=== PATIENT | female | born 1955 | race Caucasian/White ===

== ENCOUNTER 2023-10-22 12:29 | Emergency (ER) | payer MEDICARE, MEDICAID, SELFPAY ==
[2023-10-22] VITALS (8 sets, daily range): BP systolic 107–130; BP diastolic 48–77; PULSE 70–87; RESP 16; TEMP 36.4–36.6; O2SAT 91–96; BMI 21.2
--- NOTE | 2023-10-22 13:17 | CT_ITS ---
FINAL REPORT TECHNIQUE: Pre-and postcontrast images of the abdomen through the pelvis were performed by computed tomography. Extensive 3-D reconstruction images were performed. A CTA was performed. This study was performed with techniques to keep radiation doses as low as reasonably achievable (ALARA). Individualized dose reduction techniques using automated exposure control or adjustment of mA and/or kV according to the patient's size were employed. CLINICAL HISTORY: [facility] reports she had moderate blood clots in her brief this am, they believe was vaginal bleeding. COMPARISON: None FINDINGS: ABDOMEN: There is a 12 mm noncalcified nodule in the right lower lobe. Multifocal other small nodular opacities are nonspecific but may represent inflammatory process such as mycobacterial/fungal disease is. There is a calcified granuloma in the left lung base. Precontrast images demonstrate no evidence of nephrolithiasis. No adrenal masses are identified. The liver, spleen and pancreas are unremarkable. The patient is post cholecystectomy. PELVIS: The appendix is normal. There is mild descending and sigmoid colon wall thickening, colitis not excluded. Multiple foci of gas are noted in the bladder of uncertain significance which may be iatrogenic but gas-forming organism is not excluded. There is moderate diffuse bladder wall thickening which is likely inflammatory. A right-sided bladder diverticulum is noted. The patient is post hysterectomy. The bony pelvis is unremarkable. CTA: There is no evidence of aneurysm or dissection. There are diffuse vascular calcifications. There is mild narrowing of the distal abdominal aorta. The celiac axis and SMA are patent. The RADHA is patent. There is mild proximal right renal artery stenosis. Focal severe 70% left renal artery stenosis is noted. There is mild stenosis of the bilateral common iliac arteries. The external iliac arteries are patent without evidence of stenosis. The internal iliac arteries are patent without stenosis. IMPRESSION: Abnormal urinary bladder may represent cystitis. Wall thickening of the descending and sigmoid colon may represent colitis. 12 mm right lower lobe nodule, nonspecific. Recommend correlation with PET-CT. Reviewed, Interpreted and Dictated by Silvio Thornton III, MD Transcribed by Rubia Watt Authenticated and [facility]
[2023-10-22 13:50] LABS: Albumin Level 4.1 g/dl (3.5-5.0)
[2023-10-22 13:51] LABS: Chloride 104 mmol/L (98-107); Potassium 3.6 mmoL/L (3.5-5.1); Sodium 139 mmol/L (136-145)
[2023-10-22 13:53] LABS: Alanine Aminotransferase 18 U/L (12-78); Aspartate Amino Transferase 21 U/L (14-36); Blood Urea Nitrogen 17 mg/dl (7-17); Creatinine Clearance Estimated 48 mL/min (50-200); Estimated Glomerular Filt Rate 83 ml/min (>60); GFR (African American) 101 ML/MIN (>60)
[2023-10-22 13:54] LABS: Albumin/Globulin Ratio 1.1 (1.1-1.8); Alkaline Phosphatase 91 U/L (38-126); Anion Gap 5.6 mEq/L (5-15); Bilirubin,Total 0.5 mg/dl (0.2-1.3); Calcium 9.5 mg/dl (8.4-10.2); Carbon Dioxide 33 mmol/L (22.0-30.0); Globulin 3.8 g/dL (1.3-3.2); Glucose 94 mg/dl (74-100); Lactic Acid 1.9 mmol/L (0.7-2.1); Lipase 56 U/L (23-300); Magnesium 1.6 mg/dl (1.6-2.3); Total Protein,Serum 7.9 g/dl (6.3-8.2)
[2023-10-22 13:57] LABS: Activated Partial Thrombo Time 29.3 seconds (22.8-30.6); INR 1.09 (0.9-1.1); Prothrombin Time 12.1 seconds (10.1-12.5)
--- NOTE | 2023-10-22 14:01 | ED_ITS ---
Discharge Plan Disposition Patient Disposition: Home, Self-Care Condition: Good Prescriptions Prescriptions: New cefdinir 300 mg capsule 300 mg PO BID 7 Days Qty: 14 0RF Referrals Follow up/Referrals: Jonathon Sanchez MD [Staff Physician] - See instructions (vaginal bleeding, refused ER pelvic exam) Provider,MD Nemesio [Primary Care Provider] - See instructions Activity Restrictions/Add. Instructions Additional Instructions/Restrictions: You were evaluated in the ER and are appropriate for discharge at this time. Because you refused a vaginal exam, you have been referred to [facility] to be evaluated for bleeding. Take the prescribed antibiotics as directed, do not skip doses, do not stop taking them early. Make an appoint with primary care physician for reevaluation in a few days and asked them to schedule you for a recheck of the lung nodule, return to the ER with new, worsening, or otherwise concerning symptoms Clinical Impressions Clinical Impression: Urinary tract infection, Lung nodule Print Language Print Language: Bots[place] Discharge ED Provider: Bharath Herrmann General Adult HPI <Bharath Herrmann MD - Last Filed: 10/22/23 15:46> General Chief complaint: Vaginal Bleeding Stated complaint: vaginal bleeding Time Seen by Provider: 10/22/23 13:01 Mode of Arrival: EMS Source of Information: Patient Limitations: No Limitations Description of Symptoms (Recalled from ER Triage Doc. by RN): pt reports she has no complaints and does not want to be here. pt is alert. EMS reports she had moderate blood clots in her brief this am, they believe was vaginal bleeding. When specifically asked about it the pt confirms the vaginal bleeding. pt is very difficult to get information from. pt is A&O X3, disoriented to time. pt states the bleeding comes and goes and I guess weeks when refering to how long this has been ongoing. pt states she has had a full hysterectomy. pt denies trauma. pt denies any pain. History of Present Illness HPI narrative: Please note that above description of symptoms, in this electronic medical record under categorization of recalled from ER triage doctor by RN are reflective of an initial nursing assessment, however, is not reflective of my full history and physical exam that was personally taken and clarified. Consequentially, this preceding description of symptoms, which may include the patient's categorized chief complaint in the EMR, do not reflect my personal clinical impression, and the ultimate description of history of present illness and patient stated complaints should be deferred to this section of the note. Unless stated otherwise or congruent with this section of the note, additional signs, symptoms, or incongruence should be interpreted as inaccurate with my clinical impression. Related Data Previous Rx's ?Medication ?Instructions ?Recorded cefdinir 300 mg capsule 300 mg PO BID 7 days #14 caps 10/22/23 Allergies Allergy/AdvReac Type Severity Reaction Status Date / Time codeine Allergy Verified 10/22/23 14:32 ketorolac Allergy Verified 10/22/23 14:32 minocycline Allergy Verified 10/22/23 14:32 PFSH <Bharath Herrmann MD - Last Filed: 10/22/23 15:46> [facility] Disclaimer: The information contained in this section may have been updated after the patient was seen, as this information can be updated by other users. Social History (Updated 10/22/23 @ 15:46 by Bharath Herrmann MD) Smoking Status: Current every day smoker alcohol intake: never current occupational status: unemployed Travel in the last 8 weeks: None <Bharath Herrmann MD - Last Filed: 10/22/23 15:46> ROS Obtained: Yes All systems reviewed & no additional complaints except as documented Physical Exam <Bharath Herrmann MD - Last Filed: 10/22/23 15:46> General General appearance: alert Head Head exam: atraumatic and normocephalic Eye Eye exam: Present normal appearance, PERRL and EOMI Neck Neck exam: Present normal inspection, full ROM and trachea midline Respiratory Respiratory exam: Absent respiratory distress, wheezes, stridor, accessory muscle use or prolonged expiratory phase Cardiovascular Cardiovascular exam: Present regular rate, normal rhythm and other (Pulses equal symmetric in upper and lower extremities) Abdominal Exam Abdominal exam: Present soft; Absent distention, tenderness or pulsatile mass Extremities Exam Extremities exam: Absent edema Neurological Exam Neurological exam: Present alert and CN II-XII intact; Absent oriented X3 (Oriented only to person) or motor sensory deficit Skin Skin exam: Present warm and dry; Absent diaphoresis or erythema Medical Decision Making <Bharath Herrmann MD - Last Filed: 10/22/23 15:46> Medical Records Medical records reviewed: Yes I reviewed the patient's medical records. Alfred Inquiry Pt receiving controlled substance: No Alfred was queried for this patient: No Vital Signs: 10/22/23 12:48 10/22/23 13:00 10/22/23 14:07 Temperature 97.6 F Temperature Source Oral Pulse Rate 74 73 Pulse Rate [Left] 87 Respiratory Rate 16 Blood Pressure 111/68 117/54 L Blood Pressure [Right Arm] 107/68 L Blood Pressure Mean [Right Arm] 81 Blood Pressure Source [Right Arm] Automatic Cuff Blood Pressure Position [Right Arm] Sitting 02 Sat by Pulse Oximetry 96 96 93 L Oxygen Delivery Method Room Air 10/22/23 17:21 10/22/23 17:30 10/22/23 18:00 Temperature Temperature Source Pulse Rate 72 86 80 Pulse Rate [Left] Respiratory Rate Blood Pressure 121/48 L 128/74 125/63 Blood Pressure [Right Arm] Blood Pressure Mean [Right Arm] Blood Pressure Source [Right Arm] Blood Pressure Position [Right Arm] 02 Sat by Pulse Oximetry 91 L 91 L 92 L Oxygen Delivery Method 10/22/23 18:30 Temperature Temperature Source Pulse Rate 70 Pulse Rate [Left] Respiratory Rate Blood Pressure 130/55 L Blood Pressure [Right Arm] Blood Pressure Mean [Right Arm] Blood Pressure Source [Right Arm] Blood Pressure Position [Right Arm] 02 Sat by Pulse Oximetry 92 L Oxygen Delivery Method Lab Data Lab Results 10/22/23 13:30: WBC 15.1 H, RBC 5.13, Hgb 14.3, Hct 46.6, MCV 90.8, MCH 27.9, M CHC 30.7 L, RDW 16.3, Plt Count 388, MPV 7.5, Neut % (Auto) 81.3 H, Lymph % (Auto) 13.5, [place] % (Auto) 3.2, Eos % (Auto) 1.3, Baso % (Auto) 0.6, Neut # (Auto) 12.3 H, Lymph # (Auto) 2.1, [place] # (Auto) 0.5, Eos # (Auto) 0.2, Baso # (Auto) 0.1, Total Counted 100, Neutrophils % (Manual) 86 H, Lymphocytes % (Manual) 12, Monocytes % (Manual) 2, Platelet Estimate Normal, RBC Morphology Normal, PT 12.1, INR 1.09, APTT 29.3, Sodium 139, Potassium 3.6, Chloride 104, C arbon Dioxide 33 H, Anion Gap 5.6, BUN 17, Creatinine 0.70, Estimated Creat Clear 48, Estimated GFR 83, Est GFR ( Amer) 101, Glucose 94, Lactate 1.9, Calcium 9.5, Magnesium 1.6, Total Bilirubin 0.5, AST 21, ALT 18, Alkaline Phosphatase 91, Total Protein 7.9, Albumin 4.1, Globulin 3.8 H, Albumin/Globulin Ratio 1.1, Lipase 56, Blood Type B Negative, Antibody Screen Negative 10/22/23 16:00: Urine Color Yellow, Urine Appearance Cloudy, Urine pH 5.5, Ur Specific [place] 1.010, Urine Protein 1+, Urine Glucose (UA) 3+, Urine Ketones Negative, Urine Blood 3+, Urine Nitrate Positive, Urine Bilirubin Negative, Urine Urobilinogen 0.2, Ur Leukocyte Esterase 2+ A, Urine RBC 50-100, Urine WBC 50-100, Ur Squamous Epith Cells 3-5, Urine Bacteria 1+ 10/22/23 13:30 10/22/23 13:30 Orders (Tests/Meds): ED MEDICATIONS Generic Name Dose Route Start Last Admin Trade Name Freq PRN Reason Stop Dose Admin Sodium Chloride 10 ml 10/22/23 14:58 10/22/23 14:59 Sodium Chloride 0.9% 10ml Syr (Rad Only) IV 11/21/23 14:57 10 ml NEEDED PRN Administration Maintain IV Site Discontinued Medications Generic Name Dose Route Start Last Admin Trade Name Freq PRN Reason Stop Dose Admin Haloperidol Lactate 2.5 mg 10/22/23 14:24 10/22/23 14:28 Haloperidol Lactate 5 Mg/Ml Vial IV 10/22/23 14:25 2.5 mg ONCE ONE Administration Haloperidol Lactate 2.5 mg 10/22/23 14:24 10/22/23 14:26 Haloperidol Lactate 5 Mg/Ml Vial IV 10/22/23 14:25 Not Given ONCE ONE Haloperidol Lactate 2.5 mg 10/22/23 14:44 10/22/23 14:48 Haloperidol Lactate 5 Mg/Ml Vial IV 10/22/23 14:45 2.5 mg ONCE ONE Administration Ceftriaxone Sodium 1 gm/ 50 mls @ 100 mls/hr 10/22/23 16:56 10/22/23 17:02 Sodium Chloride IV 10/22/23 17:25 100 mls/hr ONCE ONE Administration Iopamidol 100 ml 10/22/23 14:58 10/22/23 14:59 Iopamidol-370 (76%);100ml Bottle IV 10/22/23 14:59 100 ml ONCE ONE Administration Sodium Chloride 50 ml 10/22/23 14:58 10/22/23 14:59 0.9 % Sodium Chloride 50 Ml Vial IV 10/22/23 14:59 50 ml ONCE ONE Administration ORDERS Category Date Time Status Type and Screen Stat BBK 10/22/23 13:[address] angio abdomen pelvis Stat Cat Scan 10/22/23 13:17 Completed Complete Blood Count Auto Diff Stat Lab 10/22/23 13:30 Completed Comprehensive Metabolic Panel Stat Lab 10/22/23 13:30 Completed Lactic Acid Stat Lab 10/22/23 13:30 Completed Lipase Stat Lab 10/22/23 13:30 Completed Magnesium Stat Lab 10/22/23 13:30 Completed PT INR [Prothrombin Time INR] Stat Lab 10/22/23 13:30 Completed PTT [Activated Partial Thrombo Time] Stat Lab 10/22/23 13:30 Completed Urinalysis and Microscopic Stat Lab 10/22/23 16:00 Completed Urine Culture Stat Micro 10/22/23 16:00 Received Medical Decision Narrative: This is a 67-year-old female unknown medical history other than chart review hypothyroidism, COPD still smoking 1/2 pack/day presenting with blood clots in her diapers. Reportedly, patient has been having blood clots in her diaper. Also has reportedly had hysterectomy, unknown if this is true, patient unable to provide adequate history. Patient denies any pain, vaginal bleeding, dysuria, hematuria, obvious blood in her stool, or any other concerns. Not on anticoagulation. History largely obtained with EMS. Patient lives at skilled nursing, no documentation available. On arrival, patient hemodynamically stable, disgruntled, unhappy, but stating that she does not want to be here in the hospital. Abdomen soft, nontender, nondistended, cardiopulmonary exam within normal obese, patient saturating appropriately, nontachypneic. No flank tenderness. Differential includes vaginal bleed, vaginal laceration, diverticulosis, malignancy, among others. Independent interpretation workup with mild leukocytosis 15.1, normal hemoglobin. Kidney function normal, LFTs normal, nonactionable electrolytes. Patient's lipase negative. CTA of the abdomen pelvis was independently interpreted, no obvious intra-abdominal bleed, but final read pending at time of handoff. Urinalysis also pending at time of handoff. [employer] Executive Director disclaimer Much of this encounter note is an electronic rubber heel and sole press tender spoken language to printed text. Electronic rubber heel and sole press tender of the spoken language may permit errors. Although I have reviewed the note, some errors may still exist. <Connor Johnson MD - Last Filed: 10/22/23 19:36> Vital Signs: 10/22/23 12:48 10/22/23 13:00 10/22/23 14:07 Temperature 97.6 F Temperature Source Oral Pulse Rate 74 73 Pulse Rate [Left] 87 Respiratory Rate 16 Blood Pressure 111/68 117/54 L Blood Pressure [Right Arm] 107/68 L Blood Pressure Mean [Right Arm] 81 Blood Pressure Source [Right Arm] Automatic Cuff Blood Pressure Position [Right Arm] Sitting 02 Sat by Pulse Oximetry 96 96 93 L Oxygen Delivery Method Room Air 10/22/23 17:21 10/22/23 17:30 10/22/23 18:00 Temperature Temperature Source Pulse Rate 72 86 80 Pulse Rate [Left] Respiratory Rate Blood Pressure 121/48 L 128/74 125/63 Blood Pressure [Right Arm] Blood Pressure Mean [Right Arm] Blood Pressure Source [Right Arm] Blood Pressure Position [Right Arm] 02 Sat by Pulse Oximetry 91 L 91 L 92 L Oxygen Delivery Method 10/22/23 18:30 Temperature Temperature Source Pulse Rate 70 Pulse Rate [Left] Respiratory Rate Blood Pressure 130/55 L Blood Pressure [Right Arm] Blood Pressure Mean [Right Arm] Blood Pressure Source [Right Arm] Blood Pressure Position [Right Arm] 02 Sat by Pulse Oximetry 92 L Oxygen Delivery Method Lab Data Lab Results 10/22/23 13:30: WBC 15.1 H, RBC 5.13, Hgb 14.3, Hct 46.6, MCV 90.8, MCH 27.9, M CHC 30.7 L, RDW 16.3, Plt Count 388, MPV 7.5, Neut % (Auto) 81.3 H, Lymph % (Auto) 13.5, [place] % (Auto) 3.2, Eos % (Auto) 1.3, Baso % (Auto) 0.6, Neut # (Auto) 12.3 H, Lymph # (Auto) 2.1, [place] # (Auto) 0.5, Eos # (Auto) 0.2, Baso # (Auto) 0.1, Total Counted 100, Neutrophils % (Manual) 86 H, Lymphocytes % (Manual) 12, Monocytes % (Manual) 2, Platelet Estimate Normal, RBC Morphology Normal, PT 12.1, INR 1.09, APTT 29.3, Sodium 139, Potassium 3.6, Chloride 104, C arbon Dioxide 33 H, Anion Gap 5.6, BUN 17, Creatinine 0.70, Estimated Creat Clear 48, Estimated GFR 83, Est GFR ( Amer) 101, Glucose 94, Lactate 1.9, Calcium 9.5, Magnesium 1.6, Total Bilirubin 0.5, AST 21, ALT 18, Alkaline Phosphatase 91, Total Protein 7.9, Albumin 4.1, Globulin 3.8 H, Albumin/Globulin Ratio 1.1, Lipase 56, Blood Type B Negative, Antibody Screen Negative 10/22/23 16:00: Urine Color Yellow, Urine Appearance Cloudy, Urine pH 5.5, Ur Specific [place] 1.010, Urine Protein 1+, Urine Glucose (UA) 3+, Urine Ketones Negative, Urine Blood 3+, Urine Nitrate Positive, Urine Bilirubin Negative, Urine Urobilinogen 0.2, Ur Leukocyte Esterase 2+ A, Urine RBC 50-100, Urine WBC 50-100, Ur Squamous Epith Cells 3-5, Urine Bacteria 1+ Orders (Tests/Meds): ED MEDICATIONS Generic Name Dose Route Start Last Admin Trade Name Jackq PRN Reason Stop Dose Admin Sodium Chloride 10 ml 10/22/23 14:58 10/22/23 14:59 Sodium Chloride 0.9% 10ml Syr (Rad Only) IV 11/21/23 14:57 10 ml NEEDED PRN Administration Maintain IV Site Discontinued Medications Generic Name Dose Route Start Last Admin Trade Name Freq PRN Reason Stop Dose Admin Haloperidol Lactate 2.5 mg 10/22/23 14:24 10/22/23 14:28 Haloperidol Lactate 5 Mg/Ml Vial IV 10/22/23 14:25 2.5 mg ONCE ONE Administration Haloperidol Lactate 2.5 mg 10/22/23 14:24 10/22/23 14:26 Haloperidol Lactate 5 Mg/Ml Vial IV 10/22/23 14:25 Not Given ONCE ONE Haloperidol Lactate 2.5 mg 10/22/23 14:44 10/22/23 14:48 Haloperidol Lactate 5 Mg/Ml Vial IV 10/22/23 14:45 2.5 mg ONCE ONE Administration Ceftriaxone Sodium 1 gm/ 50 mls @ 100 mls/hr 10/22/23 16:56 10/22/23 17:02 Sodium Chloride IV 10/22/23 17:25 100 mls/hr ONCE ONE Administration Iopamidol 100 ml 10/22/23 14:58 10/22/23 14:59 Iopamidol-370 (76%);100ml Bottle IV 10/22/23 14:59 100 ml ONCE ONE Administration Sodium Chloride 50 ml 10/22/23 14:58 10/22/23 14:59 0.9 % Sodium Chloride 50 Ml Vial IV 10/22/23 14:59 50 ml ONCE ONE Administration ORDERS Category Date Time Status Type and Screen Stat BBK 10/22/23 13:[address] angio abdomen pelvis Stat Cat Scan 10/22/23 13:17 Completed Complete Blood Count Auto Diff Stat Lab 10/22/23 13:30 Completed Comprehensive Metabolic Panel Stat Lab 10/22/23 13:30 Completed Lactic Acid Stat Lab 10/22/23 13:30 Completed Lipase Stat Lab 10/22/23 13:30 Completed Magnesium Stat Lab 10/22/23 13:30 Completed PT INR [Prothrombin Time INR] Stat Lab 10/22/23 13:30 Completed PTT [Activated Partial Thrombo Time] Stat Lab 10/22/23 13:30 Completed Urinalysis and Microscopic Stat Lab 10/22/23 16:00 Completed Urine Culture Stat Micro 10/22/23 16:00 Received Medical Decision Narrative: This is a 67-year-old female unknown medical history other than chart review hypothyroidism, COPD still smoking 1/2 pack/day presenting with blood clots in her diapers. Reportedly, patient has been having blood clots in her diaper. Also has reportedly had hysterectomy, unknown if this is true, patient unable to provide adequate history. Patient denies any pain, vaginal bleeding, dysuria, hematuria, obvious blood in her stool, or any other concerns. Not on anticoagulation. History largely obtained with EMS. Patient lives at skilled nursing, no documentation available. On arrival, patient hemodynamically stable, disgruntled, unhappy, but stating that she does not want to be here in the hospital. Abdomen soft, nontender, nondistended, cardiopulmonary exam within normal obese, patient saturating appropriately, nontachypneic. No flank tenderness. Differential includes vaginal bleed, vaginal laceration, diverticulosis, malignancy, among others. Independent interpretation workup with mild leukocytosis 15.1, normal hemoglobin. Kidney function normal, LFTs normal, nonactionable electrolytes. Patient's lipase negative. CTA of the abdomen pelvis was independently interpreted, no obvious intra-abdominal bleed, but final read pending at time of handoff. Urinalysis also pending at time of handoff. [employer] Executive Director disclaimer Much of this encounter note is an electronic rubber heel and sole press tender spoken language to printed text. Electronic rubber heel and sole press tender of the spoken language may permit errors. Although I have reviewed the note, some errors may still exist. Johnson: Upon my assumption of care patient is stable and resting comfortably. Patient's CT abdomen pelvis was personally interpreted and I do not appreciate acute intra-abdominal pathology besides findings of cystitis. Radiology read is in agreement. Patient also has an incidental finding of lung nodule which she was informed of and instructed to follow-up. Patient's urinalysis is concerning for urinary tract infection. She received Rocephin. I explained to the patient that I needed to perform a pelvic exam to evaluate vaginal bleeding. She initially consented but then refused. She stated she did not want it. She was able to explain to me she did not want to go through the discomfort and understood I could be missing something dangerous by not performing this exam. Patient is appropriate for discharge. I prescribed cefdinir for outpatient management of urinary tract infection. I referred her to OB for further evaluation of reported vaginal bleeding. Patient was given instructions on symptomatic management, follow up instructions, and return precautions for the emergency department. Patient indicated understanding and was discharged in stable condition. Critical Care <Bharath Herrmann MD - Last Filed: 10/22/23 15:46> Critical Care Time Critical Care Time: No
[2023-10-22 14:05] LABS: Basophils # 0.1 K/mm3 (0-0.2); Basophils % 0.6 % (0.1-2.0); Eosinophils # 0.2 K/mm3 (0.0-0.4); Eosinophils % 1.3 % (0.1-12.0); Hematocrit 46.6 % (37.0-47.0); Hemoglobin 14.3 g/dL (12.2-16.2); Lymphocytes # 2.1 K/mm3 (0.7-4.5); Lymphocytes % 13.5 % (10-50); Mean Corpuscular HGB Conc 30.7 g/dL (31.8-35.4); Mean Corpuscular Hemoglobin 27.9 pg (27.0-31.2); Mean Corpuscular Volume 90.8 fl (81-99); Mean Platelet Volume 7.5 fl (7.4-10.4); Monocytes # 0.5 K/mm3 (0.1-1.0); Monocytes % 3.2 % (1.7-9.3); Neutrophils # 12.3 K/mm3 (1.8-7.8); Neutrophils % 81.3 % (37.0-80.0); Platelet Count 388 K/mm3 (142-424); Red Blood Count 5.13 M/mm3 (4.20-5.40); Red Cell Distribution Width 16.3 % (11.5-17.5); White Blood Count 15.1 K/mm3 (4.8-10.8)
[2023-10-22 14:07] LABS: MANUAL DIFFERENTIAL MANUAL DIFFERENTIAL (MANUAL DIFF)
[2023-10-22] MEDS: HALOPERIDOL LACTATE 5 MG/ML VIAL 2.5 MG IV ×2 (14:28→14:48)
--- NOTE | 2023-10-22 14:48 | PC.NURSE ---
pt transported to radiology
[2023-10-22] MEDS: IOPAMIDOL-370 (76%);100ML BOTTLE 100 ML IV (14:59)
[2023-10-22] MEDS: 0.9 % SODIUM CHLORIDE 50 ML VIAL IV (14:59)
[2023-10-22] MEDS: SODIUM CHLORIDE 0.9% 10ML SYR (RAD ONLY) 10 ML IV (14:59)
[2023-10-22 15:28] LABS: Lymphocytes % 12 % (10-50); Monocytes % 2 % (2-9); Neutrophils % 86 % (42-76); Platelet Estimate Normal; RBC Morphology Normal; Total Cells Counted 100
[2023-10-22 16:09] LABS: Microscopic, Urine URINE MICROSCOPIC (MICROSCOPIC)
[2023-10-22 16:22] LABS: Appearance,Urine CLOUDY (Clear); Bilirubin,Urine Negative (Negative); Blood, Urine 3+ (Negative); Color,Urine YELLOW (Yellow); Glucose,Urine (UA) 3+ (Negative); Ketones,Urine Negative (Negative); Leukocyte Esterase,Urine 2+ (Negative); Nitrate,Urine POSITIVE (Negative); PH,Urine 5.5 (5.0-8.5); Protein,Urine 1+ (Negative); Urobilinogen,Urine 0.2 EU/dl (0.2)
[2023-10-22 16:30] LABS: Bacteria,Urine 1+ /lpf; RBC,Urine 50-100 #/hpf (0-3); WBC,Urine 50-100 #/hpf (0-3)
[2023-10-22] MEDS: CEFTRIAXONE SODIUM 1 GM in 0.9 % SODIUM CHLORIDE 50 ML IV (17:02)
--- NOTE | 2023-10-22 19:32 | PC.NURSE ---
Christopher Cruz notified that patient is ready for discharge
--- NOTE | 2023-10-23 10:48 | PC.NURSE ---
discussed urine culture with , pt dc with cefdinir, ntd
--- NOTE | 2023-10-24 09:29 | PC.NURSE ---
discussed final urine culture results with , pt dc with cefdinir, ntd
== END 2023-10-22 19:44 | disposition home or self-care (01) ==
PROVIDERS: Emergency Provider Emergency Medicine
DX: N39.0 Urinary tract infection, site not specified (principal); B96.89 Other specified bacterial agents as the cause of diseases classified elsewhere; R91.1 Solitary pulmonary nodule; R45.2 Unhappiness; F17.210 Nicotine dependence, cigarettes, uncomplicated
CPT/HCPCS: 74174; 80053; 81001; 83605; 83690; 83735; 85007; 85025; 85027; 85610; 85730; 86850; 87086; 87088; 87186; 96365; 96375; 99285; J0696; J1630; Q9967

== ENCOUNTER 2024-01-18 09:36 | Emergency (ER) | payer MEDICARE, MEDICAID, SELFPAY ==
[2024-01-18] VITALS (8 sets, daily range): BP systolic 109–128; BP diastolic 53–83; PULSE 68–91; RESP 18–24; TEMP 36.5; O2SAT 90–100; BMI 18.8
--- NOTE | 2024-01-18 09:25 | PC.NURSE ---
DR LANGLEY AT BEDSIDE
--- NOTE | 2024-01-18 09:42 | HMH.EDGENADL ---
Discharge Plan Disposition Patient Disposition: Home, Self-Care Prescriptions Prescriptions: No Action cefdinir 300 mg capsule 300 mg PO BID 7 Days Qty: 14 0RF Activity Restrictions/Add. Instructions Additional Instructions/Restrictions: Call your family doctor to establish care for this visit to the emergency department and schedule follow-up within 48 hours to ensure improvement. If you have any worsening of your condition or any other concerning signs or symptoms, return to the emergency department or your primary care doctor for further evaluation. Redness may continue to get worse over the next 48 hours. If it continues to get worse after this, return to the emergency department for further evaluation. Clinical Impressions Clinical Impression: Cellulitis of face Instructions Patient Instructions: DI for Skin Abscess Print Language Print Language: Dutch Discharge ED Provider: Bharath Herrmann General Adult HPI General Chief complaint: Skin/Abscess/Foreign Body Stated complaint: facial swelling Time Seen by Provider: 01/18/24 09:42 Mode of Arrival: EMS Source of Information: Patient and EMS Limitations: No Limitations Description of Symptoms (Recalled from ER Triage Doc. by RN): facial swelling and redness. History of Present Illness HPI narrative: Please note that above description of symptoms, in this electronic medical record under categorization of recalled from ER triage doctor by RN are reflective of an initial nursing assessment, however, is not reflective of my full history and physical exam that was personally taken and clarified. Consequentially, this preceding description of symptoms, which may include the patient's categorized chief complaint in the EMR, do not reflect my personal clinical impression, and the ultimate description of history of present illness and patient stated complaints should be deferred to this section of the note. Unless stated otherwise or congruent with this section of the note, additional signs, symptoms, or incongruence should be interpreted as inaccurate with my clinical impression. Related Data Previous Rx's ?Medication ?Instructions ?Recorded cefdinir 300 mg capsule 300 mg PO BID 7 days #14 caps 10/22/23 Allergies Allergy/AdvReac Type Severity Reaction Status Date / Time codeine Allergy Verified 10/22/23 14:32 ketorolac Allergy Verified 10/22/23 14:32 minocycline Allergy Verified 10/22/23 14:32 [facility] Disclaimer: The information contained in this section may have been updated after the patient was seen, as this information can be updated by other users. Social History (Updated 10/22/23 @ 15:46 by Bharath Herrmann MD) Smoking Status: Current every day smoker alcohol intake: never current occupational status: unemployed Travel in the last 8 weeks: None ROS Obtained: Yes All systems reviewed & no additional complaints except as documented Physical Exam General General appearance: alert Head Head exam: atraumatic, normocephalic and other (Patient has well-circumscribed erythema originating at the earlobe on the right extending periauricular early and anteriorly toward face. Affecting V1 through V3 distributions on the right. Warm, nontender.) Eye Eye exam: Present PERRL, EOMI and other (Periorbital erythema without edema) Neck Neck exam: Present normal inspection, full ROM and trachea midline Respiratory Respiratory exam: Absent respiratory distress, wheezes, stridor, accessory muscle use or prolonged expiratory phase Cardiovascular Cardiovascular exam: Present other (Pulses equal symmetric in upper and lower extremities) Abdominal Exam Abdominal exam: Present soft; Absent distention, tenderness or pulsatile mass Extremities Exam Extremities exam: Present other Neurological Exam Neurological exam: Present alert, oriented X3 and CN II-XII intact; Absent motor sensory deficit Skin Skin exam: Present warm, dry and erythema; Absent diaphoresis Medical Decision Making Medical Records Medical records reviewed: Yes I reviewed the patient's medical records. Screening: Per USPSTF and CDC recommendations, given the prevalence of disease in our region, it is our hospital?s policy to screen for HIV and viral Hepatitis for all patients aged 18 and over and those with ongoing risk factors. Alfred Inquiry Pt receiving controlled substance: No Alfred was queried for this patient: No Vital Signs: 01/18/24 09:25 01/18/24 09:29 01/18/24 09:30 Temperature 97.7 F Temperature Source Oral Pulse Rate 70 68 Pulse Rate [Right] 70 Respiratory Rate 24 Blood Pressure 122/56 L 110/55 L Blood Pressure [Right Arm] 110/55 L Blood Pressure Mean Blood Pressure Mean [Right Arm] 73 Blood Pressure Source Blood Pressure Position 02 Sat by Pulse Oximetry 96 100 99 Oxygen Delivery Method Nasal Cannula Oxygen Flow Rate (LPM) 2 01/18/24 10:00 01/18/24 10:31 01/18/24 11:00 Temperature Temperature Source Pulse Rate 71 91 H 73 Pulse Rate [Right] Respiratory Rate Blood Pressure 111/53 L 111/53 L 109/83 L Blood Pressure [Right Arm] Blood Pressure Mean Blood Pressure Mean [Right Arm] Blood Pressure Source Blood Pressure Position 02 Sat by Pulse Oximetry 100 90 L 100 Oxygen Delivery Method Oxygen Flow Rate (LPM) 01/18/24 11:30 01/18/24 12:00 Temperature 97.7 F Temperature Source Oral Pulse Rate 72 Pulse Rate [Right] Respiratory Rate 18 Blood Pressure 128/70 128/72 Blood Pressure [Right Arm] Blood Pressure Mean 99 Blood Pressure Mean [Right Arm] Blood Pressure Source Automatic Cuff Blood Pressure Position Sitting 02 Sat by Pulse Oximetry Oxygen Delivery Method Room Air Oxygen Flow Rate (LPM) Lab Data Lab Results 01/18/24 09:40: WBC 11.1 H, RBC 4.96, Hgb 14.4, Hct 43.6, MCV 87.8, MCH 28.9, MCHC 33.0, RDW 15.9, Plt Count 299, MPV 7.6, Neut % (Auto) 82.3 H, Lymph % (Auto) 12.0, [place] % (Auto) 3.4, Eos % (Auto) 1.5, Baso % (Auto) 0.7, Neut # (Auto) 9.1 H, Lymph # (Auto) 1.3, [place] # (Auto) 0.4, Eos # (Auto) 0.2, Baso # (Auto) 0.1, PT 11.3, INR 1.01, APTT 23.6, Sodium 143, Potassium 3.7, Chloride 98, Carbon Dioxide 37 H, Anion Gap 11.7, BUN 19 H, Creatinine 0.60, Estimated Creat Clear 42, Estimated GFR 99, Est GFR ( Amer) 120, Glucose 181 H, Hemoglobin A1c 6.4 H, Lactate 1.9, Calcium 9.7, Total Bilirubin 0.6, AST 26, ALT 20, Alkaline Phosphatase 112, Total Protein 7.9, Albumin 4.1, Globulin 3.8 H, Albumin/Globulin Ratio 1.1, HIV 1&2 Antibody Rapid Nonreactive 01/18/24 09:40 01/18/24 09:40 Orders (Tests/Meds): ED MEDICATIONS Discontinued Medications Generic Name Dose Route Start Last Admin Trade Name Freq PRN Reason Stop Dose Admin Dalbavancin 1,500 mg/ Dextrose 250 mls @ 500 mls/hr 01/18/24 10:29 01/18/24 11:01 IV 11/12/24 10:30 500 mls/hr ONCE ONE Administration ORDERS Category Date Time Status Complete Blood Count Auto Diff Stat Lab 01/18/24 09:40 Completed Comprehensive Metabolic Panel Stat Lab 01/18/24:40 Completed HIV (1&2) Antibody Rapid Stat Lab 01/18/24 09:40 Completed Hemoglobin A1C Stat Lab 01/18/24:40 Completed Hep C Ab with Reflex to RNA Stat Lab 01/18/24:40 Received Lactic Acid Stat Lab 01/18/24:40 Completed PT INR [Prothrombin Time INR] Stat Lab 01/18/24:40 Completed PTT [Activated Partial Thrombo Time] Stat Lab 01/18/24: Completed Blood Culture Stat Micro 01/18/24 09:30 Received Medical Decision Narrative: 68-year-old female history of hypertension, hyperlipidemia, COPD noncompliant with home oxygen presenting with facial erythema. Patient states she woke up with facial erythema today. Nontender, no fevers or chills, no difficulty speaking, breathing, changes in vision, or any other concerns. Denies any new exposures or medicines. Came in for further evaluation. History was obtained via conversation with patient. On arrival, patient hemodynamically stable, alert, oriented x4, appropriate, GCS 15, moving all extremities spontaneously, pupils equal and reactive to light. Full physical exam performed and significant for patient has skin defect without obvious purulence right earlobe. From this, edema of the entire ear with associated erythema and warmth. Periauricular edema and erythema with associated warmth extending onto the face in V1 through V3 distributions. No ocular involvement. No evidence of crepitus. Vision intact. No evidence of obvious lymphadenopathy, stridor, voice changes, or any distress. Patient states it is not uncomfortable, not bothering her at all and she feels fine. Differential includes cellulitis, erysipelas, necrotizing infection, abscess, osteomyelitis, chondritis, sepsis, among others. Patient placed on continuous cardiac monitoring and continuous pulse ox with initial blood pressure 110/55, heart rate 70, saturation 100% on room air, placed on 2 L nasal cannula as patient is breathing through pursed lips. Patient was given Dalvance 1500 mg for symptomatic management after workup independently interpreted and significant for mild leukocytosis 11.1 with mild neutrophilia. Normal coags, nonactionable chemistry. A1c 6.4 prediabetes. Negative lactate. On reevaluation, patient adamant about leaving. Because no systemic signs or symptoms, hemodynamically stable, reassuring workup, given dalbavancin. Patient refusing to be admitted, I feel she is appropriate for home-going, but with very close follow-up. I would recommend that she stays, but she states she will return if it gets worse. Given patient presentation, workup, history, this most likely represents facial cellulitis. Because patient at baseline without signs or symptoms of clinical decompensation, deemed appropriate for discharge. Results were relayed to patient who voiced understanding and were agreeable to outpatient management and follow up. I discussed my clinical impression with patient and answered all questions. At this time, the evidence for any other entities in the differential is insufficient to warrant any further testing or ED observation. This was explained as well. Advisory was given that persistent or worsening symptoms require further evaluation. I confirmed the understanding of this discussion. Close return precautions given Diagnostic Cardiac Sonographer disclaimer Much of this encounter note is an electronic tunnel elastic operator zigzag spoken language to printed text. Electronic tunnel elastic operator zigzag of the spoken language may permit errors. Although I have reviewed the note, some errors may still exist. Critical Care Critical Care Time Critical Care Time: No
[2024-01-18 09:56] LABS: Basophils # 0.1 K/mm3 (0-0.2); Basophils % 0.7 % (0.1-2.0); Eosinophils # 0.2 K/mm3 (0.0-0.4); Eosinophils % 1.5 % (0.1-12.0); Hematocrit 43.6 % (37.0-47.0); Hemoglobin 14.4 g/dL (12.2-16.2); Lymphocytes # 1.3 K/mm3 (0.7-4.5); Mean Corpuscular Hemoglobin 28.9 pg (27.0-31.2); Mean Corpuscular Volume 87.8 fl (81-99); Mean Platelet Volume 7.6 fl (7.4-10.4); Monocytes # 0.4 K/mm3 (0.1-1.0); Monocytes % 3.4 % (1.7-9.3); Neutrophils # 9.1 K/mm3 (1.8-7.8); Neutrophils % 82.3 % (37.0-80.0); Platelet Count 299 K/mm3 (142-424); Red Blood Count 4.96 M/mm3 (4.20-5.40); Red Cell Distribution Width 15.9 % (11.5-17.5); White Blood Count 11.1 K/mm3 (4.8-10.8)
[2024-01-18 10:08] LABS: Alanine Aminotransferase 20 U/L (12-78); Albumin Level 4.1 g/dl (3.5-5.0); Albumin/Globulin Ratio 1.1 (1.1-1.8); Alkaline Phosphatase 112 U/L (38-126); Anion Gap 11.7 mEq/L (5-15); Aspartate Amino Transferase 26 U/L (14-36); Bilirubin,Total 0.6 mg/dl (0.2-1.3); Blood Urea Nitrogen 19 mg/dl (7-17); Calcium 9.7 mg/dl (8.4-10.2); Carbon Dioxide 37 mmol/L (22.0-30.0); Chloride 98 mmol/L (98-107); Creatinine Clearance Estimated 42 mL/min (50-200); Estimated Glomerular Filt Rate 99 ml/min (>60); GFR (African American) 120 ML/MIN (>60); Globulin 3.8 g/dL (1.3-3.2); Glucose 181 mg/dl (74-100); INR 1.01 (0.9-1.1); Potassium 3.7 mmoL/L (3.5-5.1); Prothrombin Time 11.3 seconds (10.1-12.5); Sodium 143 mmol/L (136-145); Total Protein,Serum 7.9 g/dl (6.3-8.2)
[2024-01-18 10:09] LABS: Lactic Acid 1.9 mmol/L (0.7-2.1)
[2024-01-18 10:11] LABS: Activated Partial Thrombo Time 23.6 seconds (22.8-30.6)
[2024-01-18 10:29] LABS: Hemoglobin A1C 6.4 % (4.0-6.0)
[2024-01-18] MEDS: DALBAVANCIN HCL 1,500 MG in DEXTROSE 5 % IN WATER 250 ML 500 MG IV (11:01)
--- NOTE | 2024-01-18 11:58 | PC.NURSE ---
THEA AT [facility] NOTIFIED THAT PT IS READY FOR DISCHARGE
[2024-01-18 13:38] LABS: HIV (1&2) Antibody Rapid NONREACTIVE (NONREACTIVE)
[2024-01-20 20:10] LABS: HCV Ab Reactive (Non Reactive)
== END 2024-01-18 12:19 | disposition home or self-care (01) ==
PROVIDERS: Emergency Provider Emergency Medicine
DX: L03.211 Cellulitis of face (principal)
CPT/HCPCS: 80053; 83036; 83605; 85025; 85610; 85730; 86803; 87040; 87389; 96374; 99284; J0875; J7060

== ENCOUNTER 2024-03-01 09:05 | Emergency (ER) | payer MEDICARE, MEDICAID, SELFPAY ==
[2024-03-01] VITALS (22 sets, daily range): BP systolic 71–118; BP diastolic 33–76; PULSE 70–109; RESP 10–23; TEMP 33.9–35.4; O2SAT 87–100; BMI 17.6
[2024-03-01] MEDS: EPINEPHrine 0.1 MG/ML 10ML SYRINGE (CRASH CART) 1 MG IV (09:05)
--- NOTE | 2024-03-01 09:10 | ECG_ITS ---
APPROVED REPORT Exam: Resting ECG HR:146 bpm ECG Measurements Heart Rate 146 AXES QRSd 157 QRS 84 QT 311 T 240 QTc 395 Conclusion ATRIAL FIBRILLATION WITH RAPID VENTRICULAR RESPONSE INTRAVENTRICULAR CONDUCTION DELAY [130+ ms QRS DURATION] ST ELEVATION, CONSIDER ANTERIOR INJURY [MARKED ST ELEVATION W/O NORMALLY INFLECTED T-WAVE IN V2-V5] Irregular rhythm with significant chatter limits diagnostic ability of this EKG no overt ST elevation in anatomical contiguous leads Electronically signed by : LATHA HSU, 03/01/2024 15:31:36
--- NOTE | 2024-03-01 09:21 | CT_ITS ---
PROCEDURE INFORMATION: Exam: CTA Abdomen and Pelvis With Contrast Exam date and time: 03/01/2024 10:24 AM Age: 68 years old Clinical indication: Other: Found unresponsive; Additional info: Found down TECHNIQUE: Imaging protocol: Computed tomographic angiography of the abdomen and pelvis with contrast. Exam focused on the arteries. 3D rendering (Not supervised by radiologist): MIP and/or 3D reconstructed images were created by the technologist. Radiation optimization: All CT scans at this facility use at least one of these dose optimization techniques: automated exposure control; mA and/or kV adjustment per patient size (includes targeted exams where dose is matched to clinical indication); or iterative reconstruction. Contrast material: ISOVUE; Contrast volume: 100 ml; Contrast route: IV; COMPARISON: CT ANGIO ABDOMEN PELVIS 10/22/2023 2:52 PM FINDINGS: Tubes, catheters and devices: There is an NG tube terminating in the body of the stomach. Lungs: Please refer to discussion of CT chest exam. Aorta: Diffuse atherosclerotic changes of the abdominal aorta. No evidence of aortic aneurysm or dissection. Celiac trunk and mesenteric arteries: Celiac trunk is patent. Calcification with some narrowing at the origin of the SMA. RADHA is identified. Renal arteries: Narrowing at the origin of the left renal artery. Right carotid artery is patent. Right iliac arteries: Scattered atherosclerotic changes right iliac vessels. No occlusion, severe stenosis. Left iliac arteries: Scattered atherosclerotic changes left iliac vessels. No occlusion or severe stenosis. Liver: No masses or enlargement.. Gallbladder and biliary ducts: Unremarkable. No calcified stones. No ductal dilation. Pancreas: Unremarkable. Main pancreatic duct is not significantly dilated. Spleen: Unremarkable. No splenomegaly. Adrenal glands: Unremarkable. No mass. Kidneys and ureters: Unremarkable. No solid mass. No hydronephrosis. Stomach and bowel: Stomach and majority of the small bowel mildly distended that may be secondary to ileus low-grade distal small bowel obstruction to be excluded. Mild degree of retained stool throughout the large bowel Appendix: No evidence of appendicitis. Intraperitoneal space: Small amount of ascites adjacent to the inferior liver margin and within the pelvis Lymph nodes: Unremarkable. No enlarged lymph nodes. Urinary bladder: There is a Yi catheter balloon within the urinary bladder. Reproductive: Unremarkable as visualized. Bones/joints: No acute fracture. Soft tissues: Mild anasarca in the soft tissues. IMPRESSION: 1. Nonspecific bowel gas pattern as discussed above. Cannot exclude distal small bowel obstruction. Continued follow-up advised. 2. Small amount of unexplained ascites. 3. Diffuse atherosclerotic changes abdominal aorta. No aortic aneurysm.
--- NOTE | 2024-03-01 09:21 | CT_ITS ---
PROCEDURE INFORMATION: Exam: CT Head Without Contrast Exam date and time: 03/01/2024 10:07 AM Age: 68 years old Clinical indication: Injury or trauma; Fall; Unconscious; Additional info: Found down TECHNIQUE: Imaging protocol: Computed tomography of the head without contrast. Radiation optimization: All CT scans at this facility use at least one of these dose optimization techniques: automated exposure control; mA and/or kV adjustment per patient size (includes targeted exams where dose is matched to clinical indication); or iterative reconstruction. COMPARISON: No relevant prior studies available. FINDINGS: Brain: Small area of encephalomalacia right parietal lobe likely secondary to small old infarct. Vague areas of decreased attenuation in the periventricular white matter attributed to chronic microvascular changes. No evidence of acute infarct. No evidence of intra cerebral hemorrhage. Cortical sulci are otherwise unremarkable for age. Cerebral ventricles: Unremarkable for age. Paranasal sinuses: Visualized sinuses are unremarkable. No fluid levels. Mastoid air cells: Visualized mastoid air cells are well aerated. Bones: Unremarkable. No acute fracture. Soft tissues: Unremarkable. IMPRESSION: 1. No acute intracranial abnormalities. 2. Small cortical infarct left parietal lobe.
--- NOTE | 2024-03-01 09:21 | CT_ITS ---
PROCEDURE INFORMATION: Exam: CTA Chest With Contrast Exam date and time: 03/01/2024 10:41 AM Age: 68 years old Clinical indication: Other: Found unresponsive; Additional info: Found down TECHNIQUE: Imaging protocol: Computed tomographic angiography of the chest with contrast. Exam focused on the arteries. 3D rendering (Not supervised by radiologist): MIP and/or 3D reconstructed images were created by the technologist. Radiation optimization: All CT scans at this facility use at least one of these dose optimization techniques: automated exposure control; mA and/or kV adjustment per patient size (includes targeted exams where dose is matched to clinical indication); or iterative reconstruction. Contrast material: ISOVUE; Contrast volume: 100 ml; Contrast route: INTRAVENOUS (IV); COMPARISON: CT ANGIO ABDOMEN PELVIS 10/22/2023 2:52 PM FINDINGS: Tubes, catheters and devices: There is an ET tube terminating approximately 3 cm above the aleksandra position. There is an NG tube coursing into the stomach. Pulmonary arteries: Pulmonary vasculature is adequately opacified without filling defects or other evidence of acute pulmonary embolism. Aorta: Scattered atherosclerotic changes of the thoracic aorta. No aortic aneurysm. Lungs: COPD with diffuse emphysematous changes. There are accentuated interstitial and peribronchial opacities that have developed with mild accompanying lower lobe bronchiectasis. Findings are likely in part secondary to patchy bronchiolitis that is infectious in nature. Findings may also be in part secondary to interstitial CHF pattern interstitial pneumonitis. There is redemonstration of a 1.2 cm circumscribed noncalcified pulmonary nodule right lower lobe unchanged. There is a smaller densely calcified nodule left lower lobe representing a benign granuloma. Pleural spaces: Unremarkable. No pneumothorax. No pleural effusion. Heart: Heart is not significantly enlarged. There are mild calcifications of the coronary arteries. No significant pericardial effusion. Heart is not significantly enlarged. No detectable coronary artery calcifications. No significant pericardial effusion. Lymph nodes: Mild confluence subcarinal lymphadenopathy. No other mediastinal or hilar lymphadenopathy detected. Bones/joints: Unremarkable. No acute fracture. Soft tissues: Unremarkable. IMPRESSION: 1. Negative CT angiogram of the chest. No evidence of acute pulmonary embolism. 2. COPD with diffuse emphysematous changes. Superimposed diffuse interstitial peribronchial opacities that have developed, nonspecific as discussed above. 3. 1.2 cm noncalcified pulmonary nodule right lower lobe redemonstrated possibly malignant in nature and could be further assessed at CT PET scan. 4. Mild subcarinal lymphadenopathy, nonspecific possibly longstanding.
--- NOTE | 2024-03-01 09:34 | CT_ITS ---
PROCEDURE INFORMATION: Exam: CTA Head With Contrast, Arteriography Exam date and time: 03/01/2024 10:12 AM Age: 68 years old Clinical indication: Injury or trauma; Fall; Unconscious; Additional info: Found down post code TECHNIQUE: Imaging protocol: Computed tomographic angiography of the head with contrast. Exam focused on the arteries. 3D rendering (Not supervised by radiologist): MIP and/or 3D reconstructed images were created by the technologist. Radiation optimization: All CT scans at this facility use at least one of these dose optimization techniques: automated exposure control; mA and/or kV adjustment per patient size (includes targeted exams where dose is matched to clinical indication); or iterative reconstruction. Contrast material: ISOVUE; Contrast volume: 100 ml; Contrast route: INTRAVENOUS (IV); COMPARISON: CT HEAD/BRAIN WO CON 03/01/2024 10:07 AM FINDINGS: ANTERIOR CIRCULATION: Right internal carotid artery: Intracranial segment is patent with no significant stenosis. No aneurysm. Right middle cerebral artery: No occlusion or significant stenosis. No aneurysm. Right anterior cerebral artery: No occlusion or significant stenosis. No aneurysm. Left internal carotid artery: Intracranial segment is patent with no significant stenosis. No aneurysm. Left middle cerebral artery: No occlusion or significant stenosis. No aneurysm. Left anterior cerebral artery: No occlusion or significant stenosis. No aneurysm. POSTERIOR CIRCULATION: Right vertebral artery: No occlusion or significant stenosis. No aneurysm. Left vertebral artery: No occlusion or significant stenosis. No aneurysm. Basilar artery: No occlusion or significant stenosis. No aneurysm. Right posterior cerebral artery: No occlusion or significant stenosis. No aneurysm. Left posterior cerebral artery: No occlusion or significant stenosis. No aneurysm. Brain: No intracranial hemorrhage, mass effect, or midline shift. Cerebral ventricles: No ventriculomegaly. Bones/joints: Unremarkable. No acute fracture. Soft tissues: Unremarkable. IMPRESSION: No large vessel occlusion or significant stenosis.
--- NOTE | 2024-03-01 09:34 | CT_ITS ---
PROCEDURE INFORMATION: Exam: CTA Neck With Contrast Exam date and time: 03/01/2024 10:12 AM Age: 68 years old Clinical indication: Injury or trauma; Fall; Unconscious; Additional info: Found down post code TECHNIQUE: Imaging protocol: Computed tomographic angiography of the neck with contrast. Exam focused on the cervical segments of the vasculature. 3D rendering (Not supervised by radiologist): MIP and/or 3D reconstructed images were created by the technologist. Radiation optimization: All CT scans at this facility use at least one of these dose optimization techniques: automated exposure control; mA and/or kV adjustment per patient size (includes targeted exams where dose is matched to clinical indication); or iterative reconstruction. Contrast material: ISOVUE; Contrast volume: 100 ml; Contrast route: INTRAVENOUS (IV); COMPARISON: CT ANGIO HEAD 03/01/2024 10:12 AM FINDINGS: Tubes, catheters and devices: There is an ET tube terminating approximately 4 cm above the aleksandra. There is an NG tube coursing through the esophagus partially visualized. Right common carotid artery: No stenosis. No dissection or occlusion. Right internal carotid artery: Calcification right ICA with mild stenosis (less than 50%). Right external carotid artery: No occlusion or stenosis of the origin. Left common carotid artery: No stenosis. No dissection or occlusion. Left internal carotid artery: Calcification left ICA with mild stenosis (less than 50%. Left external carotid artery: No occlusion or stenosis of the origin. Right vertebral artery: No stenosis. No dissection or occlusion. Left vertebral artery: No stenosis. No dissection or occlusion. Lymph nodes: There is mild subcarinal lymphadenopathy partially visualized difficult to further assess. Soft tissues: Normal. No significant soft tissue swelling. Bones/joints: No acute fracture. Lungs: COPD with diffuse upper lobe emphysematous changes. Superimposed right apical fibrosis. IMPRESSION: 1. Mild bilateral carotid stenosis (less than 50%). 2. No evidence of vertebrobasilar insufficiency. 3. COPD with diffuse upper lobe emphysematous changes. 4. Mild subcarinal lymphadenopathy partially visualized better assessed on dedicated CT exam of the chest. REFERENCES: NASCET CRITERIA. The degree of stenosis in the cervical segment of the internal carotid artery is based on NASCET criteria. Normal is no stenosis. Mild is less than 50% stenosis. Moderate is 50-69% stenosis. Severe is 70% to 99% stenosis. Total occlusion is no detectable patent lumen.
[2024-03-01 09:38] LABS: Microscopic, Urine URINE MICROSCOPIC (MICROSCOPIC)
--- NOTE | 2024-03-01 09:43 | PC.NURSE ---
[address] [facility] ems pt arrived on autopulse in place. EMS bagging. 20g in L FA. no airway in place. last pulse check by ems pt PEA on monitor. glucose per EMS 136. pt resides at [facility]. staff report they went to get pt up for breakfast. pt was found barely responsive, pt was packed to the nurses station by staff. staff report they are unsure if pt lost a pulse or stopped breathing. staff report they were unable to get any oxygen readings or blood pressure readings. staff called 911 but report they called 911 again because while waiting for the ambulance to arrive pt began to turn blue in fingers and lips. daughter in law was called and notified of situation by staff at [facility]. 0905 1 round epi given 0907 radial, carotid pulse returned. 0909 pupils fixed per MD. 0910 EKG performed, afib rvr. 0919 ETT tube placed, 7.5. color change noted. 0930 rectal temp 98.2 0930 temp sensing wynne placed, urine sample sent. 0938 NG placed in R NASE @ 55. awaiting orders to be placed, and radiology for pt to go to scan.
[2024-03-01 09:45] LABS: ABG HCO3 13.6 mmhg (22.0-26.0); ABG Oxygen Saturation 100 % (90-100)
--- NOTE | 2024-03-01 09:48 | HMH.EDGENADL ---
Discharge Plan Disposition Patient Disposition: Xfer Short-Term Hosp Prescriptions Prescriptions: No Action cefdinir 300 mg capsule 300 mg PO BID 7 Days Qty: 14 0RF Referrals Follow up/Referrals: Maxim Sanchez APRN [Primary Care Provider] - See instructions Clinical Impressions Clinical Impression: Cardiac arrest, Acute hyperkalemia, BOBO (acute kidney injury), Non-ST elevation NM (NSTEMI), Shock liver Print Language Print Language: Frisian Discharge ED Provider: John Rhoades General Adult HPI General Stated complaint: Unresposive Time Seen by Provider: 03/01/24 09:05 History of Present Illness HPI narrative: Patient is a 68-year-old female with largely unknown past medical history presents emergency department in PEA arrest. Limited history is obtained by EMS report. Patient lives at [facility], was found unresponsive this morning and agonal breathing, by the time they carried her to the nurses station she quit breathing. Upon EMS arrival patient was in PEA arrest. Fingerstick blood glucose greater than 130, IV access was obtained and patient was bagged, no definitive airway placed, she was placed on the ZOLL, no shocks delivered, patient underwent chest compressions with auto pulse device and presents in extremis. No records from [facility] on arrival. Related Data Previous Rx's ?Medication ?Instructions ?Recorded cefdinir 300 mg capsule 300 mg PO BID 7 days #14 caps 10/22/23 Allergies Allergy/AdvReac Type Severity Reaction Status Date / Time codeine Allergy Verified 10/22/23 14:32 ketorolac Allergy Verified 10/22/23 14:32 minocycline Allergy Verified 10/22/23 14:32 [facility] Disclaimer: The information contained in this section may have been updated after the patient was seen, as this information can be updated by other users. Social History (Updated 10/22/23 @ 15:46 by Bharath Herrmann MD) Smoking Status: Current every day smoker alcohol intake: never current occupational status: unemployed Travel in the last 8 weeks: None ROS Obtained: Yes unobtainable due to mental status Physical Exam General General appearance: other Comment: In extremis Head Head exam: atraumatic and normocephalic Eye Eye exam: Absent PERRL (Mid fixed dilated nonreactive to light) Respiratory Respiratory exam: Present other (Bilateral breath sounds) Cardiovascular Cardiovascular exam: Present other (No palpable carotid pulse) Abdominal Exam Abdominal exam: Present soft; Absent distention Neurological Exam Neurological exam: Present other (GCS 3) Medical Decision Making Medical Records Screening: Per USPSTF and CDC recommendations, given the prevalence of disease in our region, it is our hospital?s policy to screen for HIV and viral Hepatitis for all patients aged 18 and over and those with ongoing risk factors. Alfred Inquiry Pt receiving controlled substance: No Vital Signs: 03/01/24 09:16 03/01/24 09:21 03/01/24 09:22 Temperature Pulse Rate 76 100 H 109 H Respiratory Rate 18 14 14 Blood Pressure 118/70 79/51 L 83/59 L 02 Sat by Pulse Oximetry 87 L 94 L 95 Oxygen Delivery Method Room Air Mechanical Ventilation Mechanical Ventilation 03/01/24 09:28 03/01/24 09:30 03/01/24 09:40 Temperature 94.5 F L Pulse Rate 108 H 107 H 106 H Respiratory Rate 22 18 21 Blood Pressure 109/71 L 114/53 L 112/64 02 Sat by Pulse Oximetry 100 100 100 Oxygen Delivery Method Mechanical Ventilation Mechanical Ventilation Mechanical Ventilation 03/01/24 09:50 Temperature 95.7 F L Pulse Rate 104 H Respiratory Rate 22 Blood Pressure 96/54 L 02 Sat by Pulse Oximetry 100 Oxygen Delivery Method Mechanical Ventilation Lab Data Lab Results 03/01/24 09:22: WBC 16.6 H, RBC 3.79 L, Hgb 10.8 L, Hct 38.5, MCV 101.6 H, MCH 28.5, MCHC 28.1 L, RDW 16.7, Plt Count 304, MPV 9.9, Neut % (Auto) 61.9, Lymph % (Auto) 16.4, Randall % (Auto) 10.4 H, Eos % (Auto) 0.1, Baso % (Auto) 0.1, Neut # (Auto) 10.3 H, Lymph # (Auto) 2.7, Randall # (Auto) 1.7 H, Eos # (Auto) 0.0, Baso # (Auto) 0.0, Sodium 140, Potassium 6.4 H*, Chloride 100, Carbon Dioxide 18 L, Anion Gap 28.4 H, BUN 56 H, Creatinine 1.70 H, Estimated Creat Clear 20, Estimated GFR 30 L, Est GFR ( Amer) 36 L, Glucose 105 H, Calcium 9.9, Magnesium 3.1 H, Total Bilirubin 1.4 H, ALT 4181 H*, Alkaline Phosphatase 233 H, Troponin I 0.11 H, Total Protein 6.6, Albumin 3.5, Globulin 3.1, Albumin/Globulin Ratio 1.1 03/01/24 09:33: Urine Color Yellow, Urine Appearance Cloudy, Urine pH 5.5, Ur Specific [place] >= 1.030, Urine Protein 2+ A, Urine Glucose (UA) 2+, Urine Ketones Negative, Urine Blood Trace-i, Urine Nitrate Negative, Urine Bilirubin Negative, Urine Urobilinogen 0.2, Ur Leukocyte Esterase Negative, Urine RBC Occasional, Urine WBC None, Ur Squamous Epith Cells None, Urine Bacteria 3+ 03/01/24 09:22 03/01/24 09:22 Orders (Tests/Meds): ED MEDICATIONS Generic Name Dose Route Start Last Admin Trade Name Lindsay PRN Reason Stop Dose Admin Vancomycin HCl 750 mg/ Sodium 250 mls @ 125 mls/hr 03/01/24 10:00 03/01/24 10:10 Chloride IV 03/01/24 11:59 125 mls/hr ONCE ONE Administration Calcium Gluconate/Sodium Chloride 2 gm in 100 mls @ 50 mls/hr 03/01/24 10:32 Calcium Gluconate 2,000mg/100ml Nacl Premix IV 03/01/24 12:31 ONCE ONE Sodium Chloride 3 ml 03/01/24 09:31 Sodium Chloride 3% 15ml Neb IH 03/31/24 09:30 ONCE PRN INDUCE SPUTUM COLLECTION Discontinued Medications Generic Name Dose Route Start Last Admin Trade Name Jackq PRN Reason Stop Dose Admin Dextrose 50 ml 03/01/24 10:32 Dextrose 50% 50ml Syringe (Crash Cart) IVP 03/01/24 10:33 ONCE ONE Lactated Ringer's 1,000 mls @ 999 mls/hr 03/01/24 09:21 Lactated Ringer's 1000 Ml Bag IV 03/01/24 10:21 .Q1H1M ONE Piperacillin Sod/Tazobactam 100 mls @ 200 mls/hr 03/01/24 09:53 Sod 4.5 gm/ Sodium Chloride IV 03/01/24 10:22 ONCE ONE Insulin Human Regular 5 unit 03/01/24 10:32 Insulin Human Regular 100 Units/Ml 10ml Vial IVP 03/01/24 10:33 ONCE ONE Miscellaneous 1 each 03/01/24 10:00 Vancomycin Consult Request NOTAPPLIC 03/31/24 09:59 CONSULT [facility]ARMACY [facility] ORDERS Category Date Time Status CT abdomen pelvis w con Stat Cat Scan 03/01/24 09:[address] angio chest - dissection Stat Cat Scan 03/01/24 09:[address] angio head Stat Cat Scan 03/01/24 09:[address] angio neck Stat Cat Scan 03/01/24 09:[address] head/brain wo con Stat Cat Scan 03/01/24 09:21 Ordered CXR --portable [XR chest portable] Stat Exams 03/01/24 09:21 Ordered BNP [NT Pro Brain Natriuretic Pep.] Stat Lab 03/01/24 09:22 Results CBC w/Auto Diff [Complete Blood Count Auto Diff] Stat Lab 03/01/24 09:22 Results CMP [Comprehensive Metabolic Panel] Stat Lab 03/01/24 09:22 Results MG [Magnesium] Stat Lab 03/01/24 09:22 Results Trop I [Troponin I] Stat Lab 03/01/24 09:22 Results Troponin I Q3H Lab 03/01/24 12:30 Ordered Troponin I Q3H Lab 03/01/24 15:30 Ordered UA [Urinalysis and Microscopic] Stat Lab 03/01/24 09:33 Completed Blood Culture Stat Micro 03/01/24 09:22 Received Sputum Culture & Gram Stain Stat Micro 03/01/24 09:29 Received Urine Culture Stat Micro 03/01/24 09:33 Received ABG [Arterial Blood Gas] Stat RT 03/01/24 09:39 Ordered VBG [Venous Blood Gas] Stat RT 03/01/24 09:21 Ordered ECG Data Tracing #1: Independently interpreted by me rate is 146, rhythm is irregular, atrial fibrillation with rapid ventricular response, no ST elevation in anatomical contiguous leads, significant chatter limits diagnostic ability of this EKG, QTc 395 Tracing #2: Independently inter by me rate is 101, rhythm is regular, axis is normal, no ST elevation in anatomical contiguous leads, QTc 467, sinus tachycardia. Medical Decision Narrative: In summary patient is 68-year-old female with limited past medical history described above presents emergency department in PEA arrest. ACLS was continued upon arrival, additional epinephrine was administered, patient was bagged and chest compressions continued to be conducted with auto pulse in concordance with ACLS. Fingerstick nonactionable. A couple minutes after arrival pulse check conducted by me, palpable left radial pulse present. Definitive airway placed with difficulty. EKG obtained immediately after has significant chatter, no overt ST elevation in anatomical contiguous leads. Differential includes devastating ARTERIAL EMBALMER event, pulmonary embolism, dissection, abdominal catastrophe, among others. Broad workup we conducted with CT imaging of the head, neck, thorax, broad hematologic labs will be obtained. Broad-spectrum antibiotics will be initiated after blood cultures are drawn. Judicious fluid resuscitation will be conducted starting with 1 L crystalloid. Sepsis bolus was considered however given tenuous state and need for continuous reassessment we deferred. [id number]-sv-[id number] ultrasound be conducted at bedside for fluid resuscitation. Kdyir-jt-zrhd ultrasound conducted at bedside shows good cardiac squeeze, patient will benefit from volume resuscitation additional liter of crystalloid will be administered. Patient undergo CT imaging however initial blood work reviewed by me, white count 16.6 being covered with antibiotics, potassium is 6.4 which calcium gluconate, 10 units of insulin and 1 amp of D50 will be administered, BOBO creatinine 1.7, significant shock liver with ALT greater than 4000 AST pending undetectably high currently, initial troponin 0.11 however patient does not have any overt ST elevation on repeat EKG likely secondary to injury from prolonged downtime although developing STEMI is not entirely excluded. Urinalysis interpreted by me and not consistent with infection. The case was discussed with [facility] Dr. Garcia graciously accepted patient for transfer for continued evaluation at this time. After patient was accepted collateral information was obtained with patient's medical records which were faxed at this time are largely empty and not contributory to meaningful care. [id number] ultrasound: Mjgog-[id number] ultrasound performed by John Rhoades, using phased array probe parasternal long cardiac axis was identified, no large pericardial effusion, normal ejection fraction, images were not saved to permanent archive, images were technically adequate and did not necessitate further imaging. Critical Care Critical Care Time Critical Care Time: Yes Attestation: On 03/01/24, the high probability of a clinically significant, sudden or life threatening deterioration of the following system(s) required my full and direct attention, intervention and personal management. The time I documented below is in addition to time spent performing reported procedures but includes the following listed in this critical care notation. Total Time Total Critical Care Time: 45
--- NOTE | 2024-03-01 09:58 | ECG_ITS ---
APPROVED REPORT Exam: Resting ECG HR:101 bpm ECG Measurements Heart Rate 101 AXES NJ 92 P 92 QRSd 129 QRS 71 QT 409 T 0 QTc 467 Conclusion SINUS TACHYCARDIA WITH SHORT NJ INTERVAL POSSIBLE LEFT ATRIAL ENLARGEMENT [-0.1mV P-WAVE IN V1/V2] RIGHT BUNDLE BRANCH BLOCK [120+ ms QRS DURATION, UPRIGHT V1, 40+ ms S IN I/aVL/V4/V5/V6] ABNORMAL ECG Electronically signed by : LATHA HSU, 03/04/2024 07:13:52
[2024-03-01 10:06] LABS: Appearance,Urine CLOUDY (Clear); Bilirubin,Urine Negative (Negative); Blood, Urine TRACE-I (Negative); Color,Urine YELLOW (Yellow); Glucose,Urine (UA) 2+ (Negative); Ketones,Urine Negative (Negative); Leukocyte Esterase,Urine Negative (Negative); Nitrate,Urine Negative (Negative); PH,Urine 5.5 (5.0-8.5); Protein,Urine 2+ (Negative); Specific Gravity, Urine >= 1.030 (1.005-1.030); Urobilinogen,Urine 0.2 EU/dl (0.2)
[2024-03-01] MEDS: VANCOMYCIN HCL 750 MG in 0.9 % SODIUM CHLORIDE 250 ML 125 MG IV (10:10)
[2024-03-01 10:20] LABS: Hematocrit 38.5 % (37.0-47.0); Hemoglobin 10.8 g/dL (12.2-16.2); Mean Corpuscular HGB Conc 28.1 g/dL (31.8-35.4); Mean Corpuscular Hemoglobin 28.5 pg (27.0-31.2); Mean Corpuscular Volume 101.6 fl (81-99); Red Blood Count 3.79 M/mm3 (4.20-5.40); Red Cell Distribution Width 16.7 % (11.5-17.5); White Blood Count 16.6 K/mm3 (4.8-10.8)
[2024-03-01 10:21] LABS: Basophils % 0.1 % (0.1-2.0); Eosinophils % 0.1 % (0.1-12.0); Lymphocytes # 2.7 K/mm3 (0.7-4.5); Lymphocytes % 16.4 % (10-50); Mean Platelet Volume 9.9 fl (7.4-10.4); Monocytes # 1.7 K/mm3 (0.1-1.0); Monocytes % 10.4 % (1.7-9.3); Neutrophils # 10.3 K/mm3 (1.8-7.8); Neutrophils % 61.9 % (37.0-80.0); Platelet Count 304 K/mm3 (142-424)
[2024-03-01 10:22] LABS: MANUAL DIFFERENTIAL MANUAL DIFFERENTIAL (MANUAL DIFF); Troponin I 0.11 ng/ml (0.00-0.034)
[2024-03-01 10:27] LABS: Alanine Aminotransferase 4181 U/L (12-78)
[2024-03-01 10:29] LABS: Albumin Level 3.5 g/dl (3.5-5.0); Albumin/Globulin Ratio 1.1 (1.1-1.8); Alkaline Phosphatase 233 U/L (38-126); Anion Gap 28.4 mEq/L (5-15); Bilirubin,Total 1.4 mg/dl (0.2-1.3); Blood Urea Nitrogen 56 mg/dl (7-17); Calcium 9.9 mg/dl (8.4-10.2); Carbon Dioxide 18 mmol/L (22.0-30.0); Chloride 100 mmol/L (98-107); Creatinine Clearance Estimated 20 mL/min (50-200); Estimated Glomerular Filt Rate 30 ml/min (>60); GFR (African American) 36 ML/MIN (>60); Globulin 3.1 g/dL (1.3-3.2); Glucose 105 mg/dl (74-100); Magnesium 3.1 mg/dl (1.6-2.3); Sodium 140 mmol/L (136-145); Total Protein,Serum 6.6 g/dl (6.3-8.2)
[2024-03-01 10:33] LABS: Potassium 6.4 mmoL/L (3.5-5.1)
--- NOTE | 2024-03-01 10:37 | PC.NURSE ---
calling [facility] per for transfer for higher level care, on waiting for [facility] to speak with
[2024-03-01 10:41] LABS: Bacteria,Urine 3+ /lpf; RBC,Urine Occasional #/hpf (0-3)
--- NOTE | 2024-03-01 10:41 | PC.NURSE ---
SPEAKING WITH AT THIS TIME
--- NOTE | 2024-03-01 10:46 | PC.NURSE ---
[facility] accepted for flight, ETA is 24 minutes, HS aware
[2024-03-01 10:49] LABS: Aspartate Amino Transferase 9998 U/L (14-36)
[2024-03-01] MEDS: IOPAMIDOL-370 (76%);100ML BOTTLE 100 ML IV (10:51)
[2024-03-01] MEDS: SODIUM CHLORIDE 0.9% 10ML SYR (RAD ONLY) 10 ML IV ×2 (10:51→10:52)
--- NOTE | 2024-03-01 10:51 | PC.NURSE ---
[facility] accepted and will be here in about 36 minutes
[2024-03-01] MEDS: 0.9 % SODIUM CHLORIDE 50 ML VIAL IV (10:52)
[2024-03-01] MEDS: LACTATED RINGERS 1000ML 1,000 ML 999 ML IV (10:54)
[2024-03-01] MEDS: INSULIN HUMAN REGULAR 100 UNITS/ML 10ML VIAL 5 UNIT IVP (10:55)
[2024-03-01] MEDS: DEXTROSE 50% 50ML SYRINGE (CRASH CART) 50 ML IVP (10:55)
[2024-03-01] MEDS: CALCIUM GLUC IN NACL, ISO-OSM 2 GM/100 ML BAG IV (10:55)
[2024-03-01 11:03] LABS: NT Pro Brain Natriuretic Pep. 35400 pg/mL (0-125)
[2024-03-01] MEDS: NOREPINEPHRINE BITARTRATE/D5W 8 MG/250 ML PLAST..BAG 3.75 MG IV (11:04)
[2024-03-01 11:13] LABS: Allen's Test Patient Unable; Oxygen 100 %; PEEP 5; Source Left Radial; Tidal Volume 380; Vent Rate 22
[2024-03-01 11:14] LABS: ABG PCO2 78.3 mmhg (35.0-45.0); ABG PH 6.86 mmol/L (7.35-7.45)
[2024-03-01] MEDS: VASOPRESSIN 40 UNIT in 0.9 % SODIUM CHLORIDE 100 ML 4.59 UNIT IV (11:46)
[2024-03-01] MEDS: METHYLPREDNISOLONE SOD SUCC 125MG VIAL 125 MG IV (11:47)
[2024-03-01] MEDS: propofoL 100 ML 1.23 MG IV (11:49)
--- NOTE | 2024-03-01 11:52 | PC.NURSE ---
Diann in room transferring equipment at 1145
[2024-03-01 12:25] LABS: Hypochromasia 2+; Lymphocytes % 31 % (10-50); Macrocytosis 1+; Monocytes % 3 % (2-9); Myelocytes % 3 (0-1); Neutrophils % 60 % (42-76); Nucleated Red Blood Cells 1; Platelet Estimate Normal; Total Cells Counted 100
--- NOTE | 2024-03-02 10:18 | PC.NURSE ---
PRELIMINARY CULTURES FAXED TO AT [phone]
== END 2024-03-01 12:34 | disposition short-term general hospital (02) ==
PROVIDERS: Emergency Provider Emergency Medicine; PCP Nurse Practitioner Acute Care
DX: I46.9 Cardiac arrest, cause unspecified (principal); K72.00 Acute and subacute hepatic failure without coma; I21.4 Non-ST elevation (NSTEMI) myocardial infarction; N17.9 Acute kidney failure, unspecified; E87.5 Hyperkalemia
CPT/HCPCS: 70450; 70496; 70498; 71275; 74177; 80053; 81001; 82803; 83735; 83880; 84484; 85007; 85025; 85027; 87040; 87070; 87077; 87086; 87088; 87186; 87205; 92950; 93005; 96361; 96365; 96366; 96374; 96375; 99291; J0171; J2704; J2919; J3370; J7120; Q9967